=== PATIENT | female | born 1995 | race Hispanic/Latino ===

== ENCOUNTER 2016-08-26 11:42 | Emergency (ER) | payer OTHER ==
[2016-08-26 11:57] VITALS: RESP 18; TEMP 97.9; O2SAT 100
[2016-08-26] MEDS ORDERED: Acetaminophen-Codeine 300/30 mg Tab PO STA (12:08)
[2016-08-26] MEDS ORDERED: Amoxicillin-Clav 875-125 mg Tab PO STA (12:09)
[2016-08-26] MEDS ORDERED: Amoxicillin-Clav 875-125 mg Tab PO ONE (12:16)
[2016-08-26] MEDS ORDERED: Acetaminophen-Codeine 300/30 mg Tab PO ONE (12:17)
--- NOTE | 2016-08-26 12:29 | C.PDOC ---
History Of Present Illness The patient reports that she went scuba diving 3 days and developed sharp pain to the left ear 2 days ago. Patient tried using swimmers ear drops which worsened the pain. Denies drainage, fever, neck pain, dizziness, hearing loss. Time Seen by Provider: 08/26/16 11:58 Chief Complaint (Nursing): ENT Problem History Per: Patient History/Exam Limitations: None Onset/Duration Of Symptoms: Persistent Current Symptoms Are (Timing): Still Present Quality (Ear): Pain W/Touch Pain Scale Rating Of: 8 Anticoagulant/Antiplatlet Use?: No Past Medical History Reviewed: Historical Data, Nursing Documentation, Vital Signs Vital Signs: Last Vital Signs Temp 97.9 F 08/26/16 11:50 Pulse 76 08/26/16 11:50 Resp 18 08/26/16 11:50 BP 135/85 08/26/16 11:50 Pulse Ox 100 08/26/16 12:43 - Medical History PMH: No Chronic Diseases Surgical History: No Surg Hx Family History: States: No Known Family Hx - Social History Hx Alcohol Use: No Hx Substance Use: No - Immunization History Hx Tetanus Toxoid Vaccination: No Hx Influenza Vaccination: Yes (2016) Hx Pneumococcal Vaccination: No Review Of Systems Except As Marked, All Systems Reviewed And Found Negative. Physical Exam - Physical Exam Appears: Non-toxic, No Acute Distress Skin: Normal Color, Warm Head: Atraumatic, Normacephalic Eye(s): bilateral: Normal Inspection, PERRL, EOMI Ear(s): Left: Other ((+) scant bloody drainage in the external canal ), Right: Normal Oral Mucosa: Moist Throat: No Erythema, No Exudate Neck: Normal ROM, Supple Extremity: Normal ROM Neurological/Psych: Oriented x3, Normal Speech, Normal Cranial Nerves, Normal Motor Gait: Steady ED Course And Treatment O2 Sat by Pulse Oximetry: 100 (on RA) Pulse Ox Interpretation: Normal Medical Decision Making Medical Decision Making: Patient has evidence of ear drum rupture with blood and debris in the external canal. Patient was instructed to not wet the ear and follow up with the ENT within 1-2 days without fail. Disposition - Disposition Disposition: HOME/ ROUTINE Disposition Time: 12:40 Condition: FAIR Additional Instructions: follow up with the ENT within 1-2 days without fail. Prescriptions: Acetaminophen/Codeine [Tylenol/Codeine 300 MG/30 MG] 1 ea PO Q8 PRN #21 tab PRN Reason: Pain, Moderate (4-7) Amoxicillin/Clavulanate [Augmentin 875 MG-125 MG] 1 tab PO BID #19 tab Loratadine [Claritin] 10 mg PO DAILY #10 tab Instructions: Ruptured Eardrum (ED), Barotrauma (ED) Forms: Work Excuse - Clinical Impression Clinical Impression: Tympanic membrane perforation, Barotrauma
[2016-08-26 12:48] VITALS: BP 120/70; PULSE 72
== END 2016-08-26 12:55 | disposition home or self-care (01) ==
LOC: C.ER 11:42
DX: S09.22XA Traumatic rupture of left ear drum, initial encounter (principal); T70.29XA Other effects of high altitude, initial encounter; Y93.15 Activity, underwater diving and snorkeling; Y92.89 Other specified places as the place of occurrence of the external cause

== ENCOUNTER 2016-10-08 03:19 | Emergency (ER) | payer OTHER ==
[2016-10-08 03:31] VITALS: BP 120/83; PULSE 65; RESP 16; TEMP 98.4; O2SAT 99
[2016-10-08] MEDS ORDERED: Bacitracin 500 Units/gm Oint Foilpak UD TOP ONE (03:34)
--- NOTE | 2016-10-08 03:34 | C.PDOC ---
History Of Present Illness Patient is 21 y/o female, [employer] employee, presents to ED for evaluation of abrasion to right index finger. Patient states she was cleaning when she suffered a cut to right index finger. Notes that she is not UTD with tetanus vaccination. Denies any active bleeding, or any other associated symptoms at this time. Time Seen by Provider: 10/08/16 03:32 Chief Complaint (Nursing): Abnormal Skin Integrity History Per: Patient History/Exam Limitations: no limitations Current Symptoms Are (Timing): Still Present Location Of Injury: Right: Hand Recent travel outside of the [place]: No Additional History Per: Patient Past Medical History Reviewed: Historical Data, Nursing Documentation, Vital Signs Vital Signs: Last Vital Signs Temp 98.4 F 10/08/16 03:25 Pulse 65 10/08/16 03:25 Resp 16 10/08/16 03:25 BP 120/83 10/08/16 03:25 Pulse Ox 99 10/08/16 04:15 Family History: States: Unknown Family Hx - Social History Hx Alcohol Use: No Hx Substance Use: No - Immunization History Hx Tetanus Toxoid Vaccination: No Hx Influenza Vaccination: Yes (2016) Hx Pneumococcal Vaccination: No Review Of Systems Except As Marked, All Systems Reviewed And Found Negative. Constitutional: Negative for: Fever, Chills Skin: Positive for: Other (abrasion to right index finger) Neurological: Negative for: Weakness, Numbness Physical Exam - Physical Exam Appears: Non-toxic, No Acute Distress Skin: Warm, Dry, Other (0.5 cm abrasion to right second lateral digit, no bleeding) Head: Atraumatic, Normacephalic Eye(s): bilateral: Normal Inspection Neck: Normal ROM Extremity: Bilateral: Normal Color And Temperature, Normal ROM Neurological/Psych: Oriented x3, Normal Speech Gait: Steady ED Course And Treatment O2 Sat by Pulse Oximetry: 99 (on RA) Pulse Ox Interpretation: Normal Progress Note: Tetanus vaccination given to patient. Bacitracin applied to affected area. Disposition - Disposition Disposition: HOME/ ROUTINE Disposition Time: 03:39 Condition: GOOD - POA Present On Arrival: None - Clinical Impression Clinical Impression: Finger abrasion - PA / [employer] / Resident Statement MD/DO has reviewed & agrees with the documentation as recorded. - Scribe Statement The provider has reviewed the documentation as recorded by the Kj Merritt All medical record entries made by the Scribe were at my direction and personally dictated by me. I have reviewed the chart and agree that the record accurately reflects my personal performance of the history, physical exam, medical decision making, and the department course for this patient. I have also personally directed, reviewed, and agree with the discharge instructions and disposition.
[2016-10-08] MEDS ORDERED: Tetanus/Diphtheria Toxoids 0.5 ml Syringe IM ONE (03:38)
[2016-10-08] MEDS ORDERED: Bacitracin 500 Units/gm Oint Foilpak UD ONE (03:41)
== END 2016-10-08 03:45 | disposition home or self-care (01) ==
LOC: C.ER 03:19
DX: S60.410A Abrasion of right index finger, initial encounter (principal); W45.8XXA Other foreign body or object entering through skin, initial encounter; Y93.H3 Activity, building and construction; Y92.238 Other place in hospital as the place of occurrence of the external cause; Y99.0 Civilian activity done for income or pay

== ENCOUNTER 2017-02-17 05:01 | Emergency (ER) | payer OTHER ==
[2017-02-17 05:15] VITALS: BP 128/83; PULSE 73; RESP 20; TEMP 98; O2SAT 99
--- NOTE | 2017-02-17 05:21 | C.PDOC ---
History Of Present Illness 21 year old female presents to the ER with a complaint of feeling increasingly tired over the past week, associated with decreased appetite. Patient reports she is getting adequate sleep but states she feels drained and cold. Denies chest pain, fever, chills, nausea, vomiting, or change in bowel habits. Time Seen by Provider: 02/17/17 05:18 Chief Complaint (Nursing): Medical Clearance History Per: Patient History/Exam Limitations: no limitations Onset/Duration Of Symptoms: Days Current Symptoms Are (Timing): Still Present Severity: Mild Pain Scale Rating Of: 4 Recent travel outside of the [place]: No Past Medical History Reviewed: Historical Data, Nursing Documentation, Vital Signs Vital Signs: Last Vital Signs Temp 98 F 02/17/17 05:09 Pulse 73 02/17/17 05:09 Resp 20 02/17/17 05:09 BP 128/83 02/17/17 05:09 Pulse Ox 99 02/17/17 05:46 - Medical History PMH: No Chronic Diseases Surgical History: No Surg Hx Family History: States: No Known Family Hx - Social History Hx Alcohol Use: No Hx Substance Use: No - Immunization History Hx Tetanus Toxoid Vaccination: Yes Hx Influenza Vaccination: Yes (2016) Hx Pneumococcal Vaccination: No Review Of Systems Constitutional: Positive for: Weakness, Other (Decreased appetite). Negative for: Fever Cardiovascular: Negative for: Chest Pain Gastrointestinal: Negative for: Nausea, Vomiting Physical Exam - Physical Exam Appears: Non-toxic, No Acute Distress Skin: Warm, Dry Head: Normacephalic Oral Mucosa: Moist Chest: Symmetrical, No Tenderness Cardiovascular: Rhythm Regular Respiratory: No Rales, No Rhonchi, No Wheezing Gastrointestinal/Abdominal: Soft, No Tenderness Neurological/Psych: Oriented x3 ED Course And Treatment - Laboratory Results Result Diagrams: 02/17/17 05:34 02/17/17 05:33 O2 Sat by Pulse Oximetry: 99 (Room air) Pulse Ox Interpretation: Normal Progress Note: Blood work and urinalysis ordered. Disposition Counseled Patient/Family Regarding: Studies Performed, Diagnosis, Need For Followup - Disposition Referrals: Tino Marc MD [Medical Doctor] - Disposition: HOME/ ROUTINE Disposition Time: 05:21 Condition: FAIR Instructions: Hypothyroidism (ED) Forms: [employer] (Pashto) - Clinical Impression Clinical Impression: Hypothyroid - Scribe Statement The provider has reviewed the documentation as recorded by the Scribe Jose Hauser All medical record entries made by the Tawnyibramírez were at my direction and personally dictated by me. I have reviewed the chart and agree that the record accurately reflects my personal performance of the history, physical exam, medical decision making, and the department course for this patient. I have also personally directed, reviewed, and agree with the discharge instructions and disposition.
[2017-02-17 05:47] LABS: BASO # 0.1 K/uL (0.0-0.2); BASO % 0.7 % (0.0-2.0); EOS # 0.2 K/uL (0.0-0.7); EOS % 1.4 % (0.0-4.0); HEMATOCRIT 42.3 % (34.0-47.0); LYMPH # 4.6 K/uL (1.0-4.3); LYMPH % 40.1 % (20.0-40.0); MEAN CELL VOLUME 90.1 fL (81.0-99.0); MEAN CORPUSCULAR HEMOGLOBIN 29.8 pg (27.0-31.0); MEAN CORPUSCULAR HGB CONC 33.1 g/dL (33.0-37.0); MEAN PLATELET VOLUME 7.9 fL (7.2-11.7); MONO # 0.9 K/uL (0.0-0.8); MONO % 7.9 % (0.0-10.0); NRBC % 0.1 % (0.0-2.0); RED CELL DISTRIBUTION WIDTH 12.6 % (11.5-14.5); WHITE BLOOD COUNT 11.4 K/uL (4.8-10.8)
[2017-02-17 05:51] LABS: ALB/GLOB RATIO 1.4 (1.0-2.1); ALKALINE PHOSPHATASE 63 U/L (38-126); ALT/SGPT 30 U/L (9-52); AST/SGOT 24 U/L (14-36); BILIRUBIN,TOTAL 0.6 mg/dL (0.2-1.3); BLOOD UREA NITROGEN 20 mg/dL (7-17); CALCIUM 8.9 mg/dl (8.6-10.4); CARBON DIOXIDE 26 mmol/L (22-30); CHLORIDE 96 mmol/L (98-107); GFR AFRICAN-AMERICAN > 60; GLUCOSE,RANDOM 82 mg/dL (65-105); POTASSIUM 4.1 mmol/L (3.6-5.2); SODIUM 133 mmol/L (132-148)
[2017-02-17 05:52] LABS: RBC URINE < 1 /hpf (0-3); URINE BACTERIA RARE (<OCC); URINE BILIRUBIN NEGATIVE (NEGATIVE); URINE BLOOD NEGATIVE (NEGATIVE); URINE COLOR Straw (YELLOW); URINE GLUCOSE (UA) NORMAL (Normal); URINE KETONE NEGATIVE (NEGATIVE); URINE LEUKOCYTE ESTERASE NEG Leu/uL (Negative); URINE PROTEIN NEGATIVE (NEGATIVE); URINE UROBILINOGEN NORMAL mg/dL (0.2-1.0); WBC URINE < 1 /hpf (0-5)
[2017-02-17 06:08] LABS: T4 12.9 ug/dL (5.5-11.0)
[2017-02-17 06:29] LABS: THYROID STIMULATING HORMONE 8.92 mIU/L (0.46-4.68)
== END 2017-02-17 06:53 | disposition home or self-care (01) ==
LOC: C.ER 05:01
DX: E03.9 Hypothyroidism, unspecified (principal)

== ENCOUNTER 2018-06-08 07:57 | Outpatient (CLI) | payer OTHER | END 2018-06-08 07:58 | disposition home or self-care (01) | LOC: C.LAB 07:57 | DX: E03.9 Hypothyroidism, unspecified (principal) ==

== ENCOUNTER 2018-06-08 08:05 | Outpatient (CLI) | payer OTHER | END 2018-06-08 08:06 | disposition home or self-care (01) | LOC: C.LAB 08:05 | DX: L50.8 Other urticaria (principal) ==